=== PATIENT | male | born 1945 | race Caucasian/White ===

== ENCOUNTER 2022-08-17 09:00 | Outpatient (NON) | payer MEDICARE, SELFPAY | END 2022-08-17 09:01 | disposition home or self-care (01) | PROVIDERS: Visit Provider Nurse Practitioner | DX: L82.0 Inflamed seborrheic keratosis (principal) | CPT/HCPCS: 88305 ==

== ENCOUNTER 2023-10-11 11:12 | Outpatient (CLI) | payer MEDICARE, SELFPAY ==
--- NOTE | ~2023-10-11 | US_ITS ---
Abdominal Sonogram: Real-time sonographic imaging of the abdomen was performed. Clinical History: Abdominal pain Findings: The liver appears echogenic, with no evidence of mass lesion or bile duct dilatation. Main portal vein demonstrates normal direction of flow. The spleen is normal in size without evidence of focal lesion. The gallbladder is absent, compatible prior cholecystectomy. The common bile duct kimberly ures 4 mm. There is a 1.7 cm simple appearing cyst near the region of the pancreatic head. The right kidney measures 8.6 cm in length and the left kidney measures 8.8 cm. There is no hydronephrosis or renal calculus. No distinct hernia seen in the right upper quadrant. Impression: Diffuse fatty infiltration of the liver. 1.7 cm simple appearing cyst near the pancreatic head region. No right upper quadrant hernia seen. Reviewed, dictated and finalized at [facility]. Impression: Diffuse fatty infiltration of the liver. 1.7 cm simple appearing cyst near the pancreatic head region. No right upper quadrant hernia seen.
== END 2023-10-11 11:13 ==
DX: R10.9 Unspecified abdominal pain (principal); K43.9 Ventral hernia without obstruction or gangrene; K76.0 Fatty (change of) liver, not elsewhere classified; K86.2 Cyst of pancreas
CPT/HCPCS: 76700

== ENCOUNTER 2025-01-29 10:33 | Outpatient (CLI) | payer MEDICARE, SELFPAY ==
--- NOTE | ~2025-01-29 | US_ITS ---
EXAM: ABDOMEN ULTRASOUND HISTORY: Cyst of pancreas COMPARISON: 10/11/2023 FINDINGS: LIVER: The liver is increased in echogenicity and unremarkable in size. The contour of the liver surface is smooth. GALLBLADDER: Surgically absent. BILE DUCTS: Common bile duct measures 4.6 mm. PANCREAS: Limited evaluation of the pancreas secondary to overlying bowel gas. Within the pancreas is a anechoic well-circumscribed focus measuring 18 x 13 x 11 mm. RIGHT KIDNEY: 8.4 cm. In length. No hydronephrosis or bulky renal calculi. VASCULATURE : The abdominal aorta is nonaneurysmal. The IVC is patent. IMPRESSION: Anechoic avascular focus within the pancreas with measurements as detailed above which given changes in positioning and technique are unchanged from 2023 examination. A cystic mass within the pancreas in isolation without comparison to the remainder of the gland is li mited. This should be further evaluated with MRCP (unless already performed elsewhere) to determine if it is part of the main pancreatic duct or a branch, or within the parenchyma, as it will assist with follo w-up evaluation. Reviewed, dictated and finalized at location [facility]. IMPRESSION: Anechoic avascular focus within the pancreas with measurements as detailed abov e which given changes in positioning and technique are unchanged from 2023 exam ination. A cystic mass within the pancreas in isolation without comparison to the remain aileen of the gland is limited. This should be further evaluated with MRCP (unless already performed elsewhere) to determine if it is part of the main pancreatic duct or a branch, or within the parenchyma, as it will assist with follow-up evaluation.
== END 2025-01-29 10:34 | disposition home or self-care (01) ==
DX: K86.2 Cyst of pancreas (principal)
CPT/HCPCS: 76705

== ENCOUNTER 2025-04-18 15:36 | Outpatient (CLI) | payer MEDICARE, SELFPAY ==
--- OUTSIDE RECORDS SUMMARY | 2025-04-16 15:20 | XMS_ITS | Encounter Summary ---
Author Organization [facility] Healthcare Address [address] [place] [address] Care Team Providers Care Doctor Assistant Name Role Phone Alisia Fox NP Primary Care Provider [phone] Reason for Referral * Diagnostic Imaging (Routine) - Closed Specialty Diagnoses / Procedures Referred By Xenia t Referred To Contact Diagnoses Screening mammogram, encounter for Procedures Screening Mammogram Bilateral W Garry Screening Mammogram, [address] [address] Referral ID Status Reason Start Date Expiration Date Visits Re quested Visits Authorized [id number] Closed 03/12/2025 04/11/2026 1 1 * Diagnostic Imaging (Routine) - Closed Specialty Diagnoses / Procedures Referred By Contac t Referred To Contact Diagnoses Screening mammogram, encounter for Procedures Screening Mammogram Bilateral W Garry Screening Mammogram, Self [address] [address] Referral ID Status Reason Start Date Expiration Date Visits Re quested Visits Authorized [id number] Closed 03/12/2025 04/11/2026 1 1 Reason for Visit * Diagnostic Imaging (Routine) - Closed Specialty Diagnoses / Procedures Referred By Contac t Referred To Contact Diagnoses Screening mammogram, encounter for Procedures Screening Mammogram Bilateral W Garry Screening Mammogram, [address] [address] Referral ID Status Reason Start Date Expiration Date Visits Re quested Visits Authorized [id number] Closed 03/12/2025 04/11/2026 1 1 Encounter Details Date Type Department Care Team (Latest Contact Info) Description 04/16/2025 3:20 PM CDT - 04/16/2025 11:59 PM CDT Hospital Encounter [facility] [address] [place] [address] Screening mammogram, encounter for Discharge Disposition: Discharge to home or self care Social History Tobacco Use Types Packs/Day Years Used Date Smoking Tobacco: Former Cigarettes 1994 Smokeless Tobacco: Never [facility] Utilities Answer Date Recorded In the past 12 months has [employer], oil, or water [employer] threatened to shut off services in your home? No 10/05/2023 Humiliation, Afraid, Rape, and Kick questionnair e Answer Date Recorded Within the last year, have y ou been afraid of your partner or ex-partner? No 10/05/2023 Within the last year, have y ou been humiliated or emotionally abused in other ways by your partner or ex-partner? No Within the last year, have y ou been kicked, hit, slapped, or otherwise physically hurt by your partner or ex-partner? No 10/05/2023 Within the last year, have y ou been raped or forced to have any kind of sexual activity by your partner or ex-partner? No 10/05/2023 Social Connection and Isolation Panel Answer Date Recorded In a typical week, how many times do you talk on the phone with family, friends, or neighbors? More than three times a week 10/05/2023 How often do you get togethe r with friends or relatives? More than three times a week 10/05/2023 How often do you attend chur ch or restorationist services? Never 10/05/2023 Do you belong to any clubs o r organizations such as buddhist groups, unions, fraternal or athletic groups, or school groups? No 10/05/2023 How often do you attend meet ings of the clubs or organizations you belong to? Never 10/05/2023 Are you , , di vorced, , never , or living with a partner? 10/05/2023 AUDIT-C Answer Date Recorded Q1: How often do you have a drink containing alcohol? Never 10/05/2023 Q2: How many drinks containi ng alcohol do you have on a typical day when you are drinking? Patient does not drink 4 Q3: How often do you have si x or more drinks on one occasion? Never 10/05/2023 Overall Financial Resource Strain (CARDIA) Answe r Date Recorded How hard is it for you to pa y for the very basics like food, housing, medical care, and heating? Not hard at all 10/05/2023 PHQ-2 Answer Date Recorded PHQ-2 Total Score (If total score is 3 or more points, staff should administer the PHQ-9) 0 08/03/2024 [facility] - Occupational Stress Questionnaire Answer Date Recorded Do you feel stress - tense, restless, nervous, or anxious, or unable to sleep at night because your mind is troubled all the time - these days? Only a little 10/05/2023 Exercise Vital Sign Answer Date Recorde d On average, how many days pe r week do you engage in moderate to strenuous exercise (like a brisk walk)? 0 days 10/05/2023 On average, how many minutes do you engage in exercise at this level? 0 min 10/05/2023 Hunger Vital Sign Answer Date Recorded Within the past 12 months, y ou worried that your food would run out before you got the money to buy more. Never true 10/05/19 24 Within the past 12 months, t he food you bought just didn't last and you didn't have money to get more. Never true 10/05/2023 PRAPARE - Transportation Answer Date Re corded In the past 12 months, has l ack of transportation kept you from medical appointments or from getting medications? No 12/2023 In the past 12 months, has l ack of transportation kept you from meetings, work, or from getting things needed for daily living? No 10/05/2023 Housing Stability Vital Sign Answer Ady e Recorded In the last 12 months, was t here a time when you were not able to pay the mortgage or rent on time? No 10/05/2023 In the last 12 months, how many places have you lived? 1 10/05/2023 In the last 12 months, was t here a time when you did not have a steady place to sleep or slept in a long-term (including now)? No 10/05/2023 Personal Safety Answer Date Recorded Have you ever been in or are you currently in a harmful physical or emotional relationship or is someone making you feel afraid or unsafe? Denies 08/22/2024 Comments No Sex and Gender Information Value Date Recorded Sex Assigned at Not on file Legal Sex Female 7:57 AM [employer] Gender Identity Not on file Sexual Orientation Not on file documented as of this encounter Last Filed Vital Signs Vital Sign Reading Time Taken Comments Blood Pressure - - Pulse - - Temperature - - Respiratory Rate - - Oxygen Saturation - - Inhaled Oxygen Concentration - - Weight 120.2 kg (265 lb) 04/16/2025 3:31 PM CDT Height 165.1 cm (5' 5) 04/16/2025 3:31 PM CDT Body Mass Index 44.1 04/16/2025 3:31 PM CDT documented in this encounter Medications at Time of Discharge albuterol HFA (PROVENTIL HFA,VENTOLIN HFA,PROAIR HFA) 90 mcg/actuation inhalerIndications :Mild intermittent asthma without complication,Seas[place] nal allergies Inhale 2 puffs every 6 (six) hours as needed for wheezing 10/05/2023 budesonide-formote roL (SYMBICORT) 160-4.5 mcg/actuation inhalerIndications :Mild intermittent asthma without complication,Seaso nal allergies USE 2 INHALATIONS BY MOUTH TWICE DAILY 30.6 g 3 10/09/2024 cholecalciferol 25 mcg (1,000 unit) tablet Take 1 tablet (1,000 Units total) by mouth daily clotrimazole (MYCELEX) 10 mg brandon Take 1 tablet (10 mg total) by mouth 5 (five) times a day 20 [place] 01/23/2024 diclofenac sodium (VOLTAREN) 1 % gelIndications:Perlita n Apply 2 g topically 4 (four) times a day Apply to R shoulder 100 g 08/03/2024 fyvdot-ioybunws-gb ylase 9,000-112,500- 112,500 unit capsule Take by mouth magnesium sulfate 100 mg capsule Take by mouth multivitamin with minerals tablet Take 1 tablet by mouth daily predniSONE (DELTASONE) 50 mg tablet Take 1 tablet (50 mg) by mouth as needed (MRI with contrast reaction previously) take one tablet 13 hrs prior, 7 hours prior and one 1 hour before MRI with contrast 3 tablet 03/06/2025 documented as of this encounter Discharge Disposition Disposition Code Departure Means Destination Discharge to home or self care documented in this encounter Plan of Treatment Pending Results Name Type Priority Associated Diagnoses Date /Time Screening Mammogram Bilateral W Garry Imaging Schedule Routine, Read Routine (OP Routine) Screening mammogram, encounter for 04/16/2025 3:50 PM CDT Scheduled Orders Name Type Priority Associated Diagnoses Orde r Schedule Screening Mammogram Bilateral W Garry Imaging Schedule Routine, Read Routine (OP Routine) Screening mammogram, encounter for Expected: 03/12/2025, Expires: 05/12/2026 Screening Mammogram Bilateral W Garry Imaging Schedule Routine, Read Routine (OP Routine) Screening mammogram, encounter for Once for 1 Occurrences starting 04/16/2025 until 04/16/2025 documented as of this encounter Visit Diagnoses Diagnosis Screening mammogram, encounter for documented in this encounter Care Teams Doctor Assistant Relationship Specialty Start Date End Date Alisia Fox NP PCP - General Family Medicine 10/05/23 documented as of this encounter
--- NOTE | ~2025-04-18 | MR_ITS ---
EXAMINATION: MR abdomen wo/w con DATE: 04/18/2025 17:03 INDICATION: Pancreatic cyst. TECHNIQUE: Magnetic resonance imaging (MRI) of the abdomen was performed without and with 20 mL MultiHance intravenous contrast. COMPARISON: Abdomen ultrasound 01/29/2025 FINDINGS: There is diffuse hepatic steatosis. The gallbladder is absent. There is a 4 mm cyst in the spleen. There is a 14 mm cyst in the body of the pancreas. The pancreatic duct is normal in caliber. The adrenal glands are normal. There are cysts in the kidneys measuring up to 2.3 cm on the left. There are no dilated loops of bowel. There are no pathologically enlarged lymph nodes. There is no free intraperitoneal fluid. IMPRESSION: 1. 14 mm low risk cystic lesion of the pancreas. The differential diagnosis includes pseudocyst, intraductal papillary mucinous neoplasm (IPMN), mucinous cystic neoplasm (MCN), serous cystadenoma, and neuroendocrine tumor. Consider abdomen MRI without and with contrast in 2 years. 2. Diffuse hepatic steatosis. Reviewed, dictated and finalized at location E. IMPRESSION: 1. 14 mm low risk cystic lesion of the pancreas. The differential diagnosis inc ludes pseudocyst, intraductal papillary mucinous neoplasm (IPMN), mucinous cyst ic neoplasm (MCN), serous cystadenoma, and neuroendocrine tumor. Consider abdom en MRI without and with contrast in 2 years. 2. Diffuse hepatic steatosis.
--- OUTSIDE RECORDS SUMMARY | 2025-04-18 15:41 | XMS_ITS | Clinical Summary ---
Author Organization [facility] Office Building B Address [address] [place] [address] Care Team Providers Care Air Crew Supervisor Name Role Phone Alisia Fox NP Primary Care Provider [phone] Allergies Active Allergy Reactions Criticality Noted Date Comments Aspirin Vomiting Low Codeine Vision changes Medium Iodinated Contrast Media Hives Medium 10/05/2023 Iodine Hives Medium Shrimp Hives Medium 08/09/2023 Pentazocine Hallucinations Medium Medications cholecalciferol 25 mcg (1,000 unit) tablet Take 1 tablet (1,000 Units total) by mouth daily Active lipase-protease- amylase 9,000-112,500- 112,500 unit capsule Take by mouth Active multivitamin with minerals tablet Take 1 tablet by mouth daily Active magnesium sulfate 100 mg capsule Take by mouth Active traMADoL (ULTRAM) 50 mg tabletIndication s:Chronic pain of right knee Take 1 tablet (50 mg total) by mouth every 6 (six) hours as needed for pain 120 tablet 4 Active albuterol HFA (PROVENTIL HFA,VENTOLIN HFA,PROAIR HFA) 90 mcg/actuation inhalerIndicatio ns:Mild intermittent asthma without complication,Sea mindy allergies Inhale 2 puffs every 6 (six) hours as needed for wheezing 4 Active LORazepam (ATIVAN) 0.5 mg tablet Take 1 tablet (0.5 mg total) by mouth once for 1 dose Take 3-45 min prior to MRI. Do not take tramadol at least 6 hours before our after taking this medication. 1 tablet 4 Active clotrimazole (MYCELEX) 10 mg brandon Take 1 tablet (10 mg total) by mouth 5 (five) times a day 20 Brandon 4 Active diclofenac sodium (VOLTAREN) 1 % gelIndications:P ain Apply 2 g topically 4 (four) times a day Apply to R shoulder 100 g 5 Active budesonide-formo teroL (SYMBICORT) 160-4.5 mcg/actuation inhalerIndicatio ns:Mild intermittent asthma without complication,Sea mindy allergies USE 2 INHALATIONS BY MOUTH TWICE DAILY 30.6 g 3 5 Active predniSONE (DELTASONE) 50 mg tablet Take 1 tablet (50 mg) by mouth as needed (MRI with contrast reaction previously) take one tablet 13 hrs prior, 7 hours prior and one 1 hour before MRI with contrast 3 tablet 5 Active Active Problems Problem Noted Date Diagnosed Date Medicare annual wellness visit, subsequent 08/03 Assessment & Plan (08/03/2024 12:33 PM STAFFING DIRECTOR): In regard to health maintenance, DEXA- declined Influenza vaccine- declined Pneumococcal vaccine- Declined Shingrix vaccine- UTD Eat a healthy diet: focus on lean meats and proteins, more fruits, vegetables and whole grains and low in sugars and fats. Limit red meat and avoid processed meat. Maintain a healthy weight; avoid being overweight. Aim for a normal body mass index (BMI) of 18.5-24.9. Help learning to eat healthier, we can set up appointment with race car driver/web press operator helper offset. Have an active lifestyle, strive for 30 minutes of moderate exercise 5 times a week and strength or resistance training at least twice a week. Use broad-spectrum (UVA+UVB) sunscreen with SPF 30 or greater, is water resistant, limit time spent in the sun (10 am-4pm), wear hat, wear UV protective clothing, wear sunglasses. Never use a tanning bed. Skin that was irradiated may be more sensitive over your lifetime. Limit alcohol intake, 1 drink per day for a woman and 2 drinks per day for a man. Bursitis of right shoulder 08/03/2024 Assessment & Plan (08/03/2024 12:30 PM STAFFING DIRECTOR): Will start on Medrol dose pack and Voltaren gel. Will continue to monitor. Encounter for screening for lipid disorder 08/03 Assessment & Plan (08/03/2024 12:35 PM STAFFING DIRECTOR): Lipid panel ordered. Will continue to monitor. History of colonic polyps 07/23/2024 Encounter for screening colonoscopy 07/23/2024 Need for hepatitis B vaccination 03/26/2024 Assessment & Plan (03/26/2024 3:20 PM CDT): Needs Hep B vaccine 4 weeks from 03/26 and third dose 4-6 months from second dose Pancreatic cyst 12/15/2023 Assessment & Plan (12/15/2023 11:32 AM CDT): Patient with 1.7 pancreatic cyst seen on US. Will obtain MR/MRCP to further evaluate cyst. If stable, will obtain MRI in one year. Hepatic steatosis 12/15/2023 Assessment & Plan (12/15/2023 11:35 AM CDT): Hepatic steatosis noted on recent US. She has BMI 44.36. Will obtain MR with elastography to determine degree of steatosis and if any fibrosis is present. Patient to get updated labs today to evaluate liver function and rule out viral hepatiits. She will need to be pre-medicated with benzo prior to MRI. Discussed the importance of weight loss. If fibrosis is seen on MRI, she may be a candidate for Rezdiffa, GLP-1 agonist or clinical study. If no fibrosis is seen, she is to discuss weight loss medication options with her PCP. We have discussed the natural history of metabolic dysfunction-associated steatotic liver disease (MASLD), formerly known as NAFLD. We discussed the risks of progression to cirrhosis, association with hepatocellular carcinoma and potential future need for liver transplantation. We have discussed that the main mortality risks are primarily due to cardiovascular diseases, non-hepatic malignancies or cancers and only thirdly, from complications of liver disease. We recommend weight loss through diet and exercise. We recommend weight loss of 10% of current body weight over a period of a year. Lifestyle modification consisting of diet, exercise, and weight loss is necessary to treat patients with MASLD. The data shows that overall weight loss is the bruner to improvement in the histopathological features of MASH. A combination of a low calorie diet (daily reduction by 500-1,000 kcal) and moderate-intensity exercise provides the best chances of achieving and maintaining weight loss over time. Weight loss of at least 3%-5% of body weight appears necessary to improve steatosis, but a greater weight loss (7%-10%) is needed to improve the majority of the histopathological features of MASH, including fibrosis. She will return to clinic in 1 year. Class 3 severe obesity due t o excess calories without serious comorbidity with body mass index (BMI) of 40.0 to 44.9 in adult 10/05/2023 Assessment & Plan (08/03/2024 12:22 PM STAFFING DIRECTOR): Encouraged heart healthy diet and lifestyle. Advised 150 min/week of aerobic exercise. Assessment & Plan (10/05/2023 12:21 PM STAFFING DIRECTOR): Generally healthy diet; eats 2 meals per day Minimal meat or sweets Unable to exercise due to chronic knee pain Elevated blood pressure read ing in office with white coat syndrome, without diagnosis of hypertension 10/05/2023 Assessment & Plan (08/03/2024 12:23 PM STAFFING DIRECTOR): Blood pressure still elevated but under 140/90. Will continue to monitor. Chronic and stable. Assessment & Plan (03/26/2024 3:10 PM CDT): Chronic, well controlled BP at home 130s/80s BP in office; 142/84 Assessment & Plan (10/05/2023 12:08 PM STAFFING DIRECTOR): BP at visit 160/82 120s/70s at home Not interested in medication at this time; states she has always had elevated BP unless at home Will continue to monitor Mild intermittent asthma without complication Assessment & Plan (08/03/2024 12:24 PM STAFFING DIRECTOR): Asthma well controlled and stable. Continues with Symbicort BID, Yoselin, and Albuterol inhaler PRN. Assessment & Plan (03/26/2024 3:16 PM CDT): Chronic, stable, well controlled Continue Symbicort BID, Yoselin D daily and Albuterol PRN Assessment & Plan (10/05/2023 12:20 PM STAFFING DIRECTOR): Chronic, generally well controlled Continue Symbicort BID, Yoselin D, albuterol PRN Seasonal allergies 10/05/2023 Assessment & Plan (08/03/2024 12:30 PM STAFFING DIRECTOR): Refilled Symbicort. Will continue to monitor. Diverticulitis 10/05/2023 Assessment & Plan (10/05/2023 12:19 PM STAFFING DIRECTOR): Generally well controlled Watches what she eats Chronic pain of right knee 10/05/2023 Assessment & Plan (10/05/2023 12:20 PM STAFFING DIRECTOR): Tramadol 50 mg PRN Will let us know when she would like to see ortho Positive colorectal cancer screening using Colog uard test 06/03/2023 Hernia of anterior abdominal wall 01/07/2015 Overview (11/04/2016): Ventral hernia Assessment & Plan (10/05/2023 11:53 AM STAFFING DIRECTOR): Has been having increased pain on her right side; has been told previously she has had hernia Abd US Encounters Date Type Department Care Team Description 04/16/2025 3:20 PM CDT - 04/16/2025 11:59 PM CDT Hospital Encounter [facility] [address] [place] [address] Screening mammogram, encounter for Discharge Disposition: Discharge to home or self care 03/11/2025 [facility]phone [facility] [address] [address] Alisia Fox NP Symptom Based Call 03/06/2025 Orders Only [facility] [address] [address] Alisia Fox NP Pancreatic cyst (Primary Dx) 03/06/2025 Orders Only [facility] [address] [address] Alisia Fox NP 03/05/2025 Telephone [facility] [address] [address] Alisia Fox NP Med Refill 03/05/2025 Telephone [facility] [address] [address] Alisia Fox NP Medical Question/Miscellaneo us 02/05/2025 Results Follow-Up [facility] [address] [address] Claudia Hallman NP US Abdomen Limited 01/31/2025 Orders Only [facility] [address] [address] Claudia Hallman NP Pancreatic cyst from Last 3 Months Immunizations Immunization Administration Dates Next Due Hep B Vaccine 09/26/2024,04/26/2024,03/26/2024 Influenza, Unspecified 08/03/2024(Deferr ed: Patient Refused),04/01/2024(Deferred: Patient Refused),06/02/2023(Deferred: Patient Refused),05/01/2022(Deferred: Patient Refused) Pneumococcal Polysaccharide PPV23 07/30/2023,08/2000 RSV Vaccine, Pref, Recombina nt, Subunit, Adjuvanted, PF, IM (Arexvy) 07/30/2023 Tdap 08/01/2007 ZOSTER Recombinant 03/16/2024,01/12/2024 Surgical History Surgery Date Site/Laterality Comments HYSTERECTOMY 08/01/1983 - 07/31/1984 CHOLECYSTECTOMY 08/01/1990 - 07/31/1991 KIDNEY SURGERY 08/01/2002 - 07/31/2003 Right BREAST BIOPSY Right benign CYST REMOVAL 08/01/1972 - 07/31/1973 Cyst removed from tailbone CATARACT EXTRACTION 09/01/2022 - 09/28/2022 Right COLONOSCOPY 08/01/2007 - 07/31/2008 COLONOSCOPY 08/10/2023 COLONOSCOPY 08/22/2024 Medical History Medical History Date Comments Asthma Arthritis Small bowel obstruction (HCC) 2002 Diverticulitis Colon polyp Family History Medical History Relation Name Comments Lung cancer Brother 1 Aneurysm Brother 2 Breast cancer Brother 2 Lung cancer Brother 2 Aneurysm Brother 3 Heart attack Father Stroke Father Breast cancer Niece Lung cancer Sister 1 Lung cancer Sister 2 Pancreatic cancer Sister 3 Relation Name Status Comments Brother 1 Brother 2 Brother 3 Brother 4 Father Mother Niece Sister 1 Sister 2 Sister 3 Sister 4 Sister 5 Sister 6 Sister 7 Alive Social History Tobacco Use Types Packs/Day Years Used Date Smoking Tobacco: Former Cigarettes 1994 Smokeless Tobacco: Never [facility] [employer] Answer Date Recorded In the past 12 months has [facility] [employer], gas, oil, or water [employer] threatened to shut off services in your [...] often do you attend chur ch or jain services? Never 10/05/2023 Do you belong to any clubs o r organizations such as yazidi groups, unions, fraternal or athletic groups, or [...] you are drinking? Patient does not drink Q3: How often do you have si [...] staff should administer the PHQ-9) 0 08/03/2024 [facility] - Occupational Stress Questionnaire Answer Date Recorded [...] place to sleep or slept in a assisted (including now)? No 10/05/2023 Personal Safety Answer Date Recorded Have you ever been in or are you currently in a harmful physical or emotional relationship or is someone making you feel afraid or unsafe? Denies 08/22/2024 Comments No Sex and Gender Information Value Date Recorded Sex Assigned at Not on file Legal Sex Female 7:57 AM STAFFING DIRECTOR Gender Identity Not on file Sexual Orientation Not on file Obstetrics History Para Term AB IAB SAB Ectopic Multiple Livin g Live Births 1 Date Outcome GA Total Labor Labor/2nd/3rd Weight Sex Type Anes PTL Molly A1 A5 Name Clin Last Filed Vital Signs Vital Sign Reading Time Taken Comments Blood Pressure 129/82 08/22/2024 10:20 AM STAFFING DIRECTOR Pulse 91 08/22/2024 10:20 AM STAFFING DIRECTOR Temperature 36.2 C (97.2 F) 08/22/2024 10:20 AM STAFFING DIRECTOR Respiratory Rate 20 08/22/2024 10:20 AM STAFFING DIRECTOR Oxygen Saturation 95% 08/22/2024 10:20 AM STAFFING DIRECTOR Inhaled Oxygen Concentration - - Weight 120.2 kg (265 lb) 04/16/2025 3:31 PM CDT Height 165.1 cm (5' 5) 04/16/2025 3:31 PM CDT Body Mass Index 44.1 04/16/2025 3:31 PM CDT Plan of Treatment Health Maintenance Due Date Last Done Comments DTaP/Tdap/Td Vaccine (2 - Td or Tdap) 08/01/2017 08/01/2007 Pneumococcal vaccine 65+ (2 of 2 - PCV) 07/30/2024 07/30/2023, 07/01/2001 Covid-19 Vaccine ( season) 2025 07/30/2023, 05/06/2022, 07/23/2021, Additional history exists Influenza Vaccine (#1) 2025 Depression Screening 08/03/2025 08/03/2024, 03/26/2024, 10/05/2023 Fall Risk Assessment 08/03/2025 08/03/2024, 10/05/19 24 Osteoporosis Screening-Bone Density Scan 08/03/2025 Postponed from 1945 (Patient declined, but will receive in the future) Well Visit 65+ 08/03/2025 08/03/2024 Zoster Vaccine Completed 03/16/2024, 01/12/2024 Hepatitis C Screening Completed 07/17/2024, 024 Procedures Procedure Name Priority Date/Time Associated Diagnosis Comments US ABDOMEN LIMITED Schedule Routine, Read Routine (OP Routine) 01/29/2025 7:59 AM CDT Pancreatic cyst HEPATITIS C ANTIBODY Routine 07/17/2024 8:24 AM STAFFING DIRECTOR Need for hepatitis C screening test from Last 3 Months or Most Recently Relevant to Health Maintenance Results * US Abdomen Limited (01/29/2025 7:59 AM CDT) Anatomical Region Laterality Modality Abdomen N/A Ultrasound us Claudia Hallman NP IMG US PROCEDURES Final Resul t * Hepatitis C antibody Blood (07/17/2024 8:24 AM STAFFING DIRECTOR) Hep C Ab Nonreactive Nonreactive Comment: Interpretive Data Nonreactive: Antibodies to HCV not detected. Does NOT exclude the possibility of recent exposure to HCV. Equivocal: Equivocal for HCV antibodies. Supplemental molecular testing will be automatically performed to determine infection status in accordance with current CDC screening recommendations. Reactive: Positive for HCV antibodies. This may represent current or past HCV infection. Supplemental molecular testing will be automatically performed to determine current infection status in accordance with current CDC screening recommendations. Interpretive data was last revised on 2019. Testing performed by: [facility], [address] [place] [address], [place]., [address] Blood 07/17/2024 8:24 AM STAFFING DIRECTOR 07/17/2024 1:15 PM STAFFING DIRECTOR us Alisia Fox NP LAB MICROBIOLOGY - GENERAL ORDER JAKOB Final Result [facility] [address] [facility] Department [place] [address] from Last 3 Months or Most Recently Relevant to Health Maintenance Insurance [facility] MEDICARE [facility] Address: [address] [address] [place] [address] [employer] MEDICARE ADVANTAGE [facility]IC[facility] Address: [address] [place], [place] [id number] Advance Directives For more information, please contact: [phone] * Full Code (Latest Code Status on File) Date Activated Date Inactivated Comments 08/22/2024 8:15 AM 08/22/2024 2:53 PM * Full Code Date Activated Date Inactivated Comments 08/22/2024 8:15 AM 08/22/2024 8:15 AM * Full Code Date Activated Date Inactivated Comments 08/10/2023 12:08 PM 08/10/2023 7:40 PM * Full Code Date Activated Date Inactivated Comments 08/10/2023 12:08 PM 08/10/2023 12:08 PM Care Teams Air Crew Supervisor Relationship Specialty Start Date End Date Alisia Fox NP PCP - General Family Medicine 10/05/23
--- OUTSIDE RECORDS SUMMARY | 2025-04-18 15:41 | XMS_ITS | Clinical Summary ---
Author Organization [facility] Address [address], [facility] [address] [place] [address] Phone Care Team Providers Care Leather Splitter Name Role Phone Erickson Amor DPM Unavailable [phone] Allergies Active Allergy Reactions Criticality Noted Date Comments Aspirin Unknown Codeine Unknown Iodinated Contrast Media Unknown Ibuprofen Unknown Naproxen Unknown Other Unknown SEASONAL Pentazocine Lactate Unknown Medications budesonide-form oterol fumarate (SYMBICORT) 160-4.5 MCG/ACT Aerosol take 2 Puffs by inhalation daily. Active Fexofenadine-Ps eudoephedrine (PAMELLA-D 24 HOUR PO) Take 1 Tab by mouth daily as needed. Active nystatin (MYCOSTATIN) 116544 UNIT/GM Cream KRISHAN THIN LAYER EXT AA TID FOR 14 DAYS UTD 1 7 Active traMADol (ULTRAM) 50 MG Tablet TAKE 1 TABLET BY MOUTH EVERY 6 HOURS NEEDED FOR PAIN 120 Tab 8 Active warfarin (COUMADIN) 5 MG Tablet Take 1 Tab by mouth daily. 30 Tab 1 8 Active Active Problems Problem Noted Date Diagnosed Date Yeast infection 03/07/2017 Gastrocnemius equinus of left lower extremity Heel spur 01/12/2016 Tendonitis, Achilles, left 01/12/2016 Asthma Left leg DVT GERD (gastroesophageal reflux disease) Insomnia DJD (degenerative joint disease) Immunizations Immunization Administration Dates Next Due Covid-19, Mrna, Lnp-s, Pf, 30 Mcg/0.3 Ml Dose (P fizer) 10/30/2020 Pneumococcal Vaccine Adult - 23 Valent 1 Tetanus Toxoid, Unspecified Formulation 08/01/19 08 Family History Medical History Relation Name Comments Breast Cancer Other neice Relation Name Status Comments Other neice Alive Social History Tobacco Use Types Packs/Day Years Used Date Smoking Tobacco: Never Smokeless Tobacco: Never Tobacco Cessation:Counseling Given: Yes Alcohol Use Standard Drinks/Week Comments No 0 (1 standard drink = 0.6 oz pur e alcohol) Comments No Sex and Gender Information Value Date Recorded Sex Assigned at Not on file Legal Sex Female 10:36 PM CDT Gender Identity Not on file Sexual Orientation Not on file Last Filed Vital Signs Vital Sign Reading Time Taken Comments Blood Pressure 137/84 05/19/2017 1:10 PM CDT Pulse 108 05/19/2017 1:10 PM CDT Temperature 36.9 C (98.5 F) 05/19/2017 1:10 PM CDT Respiratory Rate 16 05/19/2017 1:10 PM CDT Oxygen Saturation 97% 05/19/2017 1:10 PM CDT Inhaled Oxygen Concentration - - Weight 124.7 kg (275 lb) 05/19/2017 1:10 PM CDT Height 162.6 cm (5' 4) 05/19/2017 1:10 PM CDT Body Mass Index 47.2 05/19/2017 1:10 PM CDT Plan of Treatment Health Maintenance Due Date Last Done Comments Hepatitis C Virus (HCV) Screening 1945 TdaP Immunization 1945 Zoster Immunization (1 of 2) 12/17/1995 Pneumococcal Immunization (5 0+ years) (2 of 2 - PCV) 07/01/2002 07/01/2001 Respiratory Syncytial Virus (RSV) Immunization (Adult) (1 - 1-dose 75+ series) 2020 Influenza Immunization (#1) 2025 SARS-COV-2 Immunization ( - 2024- season) 2025 07/23/2021, 11/27/2020, 10/30/2020 Pneumococcal Immunization Combined Discontinued 07/01/2001 Colorectal Cancer Screening Discontinued Immunochemical Fecal Occult Blood Discontinued 08/04/2016 Mammogram Discontinued 08/20/2016 Cologuard Discontinued Colonoscopy Discontinued Hepatitis B Immunization Aged Out No longer eligible based on patient's age to complete this topic Human Papillomavirus (HPV) Immunization Aged Out No longer eligible based on patient's age to complete this topic Meningococcal Immunization (ACWY) Aged Out No longer eligible based on patient's age to complete this topic Rotavirus Immunization Aged Out No lo nger eligible based on patient's age to complete this topic Procedures Procedure Name Priority Date/Time Associated Diagnosis Comments RUBIO SCREENING BILATERAL DIGITAL W CAD Routine 08/20/2016 2:19 PM PHOTOENGRAVING MACHINE OPERATOR/TENDER Encounter for screening mammogram for breast cancer STOOL, OCCULT BLOOD IMMUNOASSAY (IFOB) Routine 08/04/2016 from Last 3 Months or Most Recently Relevant to Health Maintenance Results * RUBIO SCREENING BILATERAL DIGITAL W CAD (08/20/2016 2:19 PM PHOTOENGRAVING MACHINE OPERATOR/TENDER) Anatomical Region Laterality Modality breast Bilateral Mammography 08/20/2016 1:51 PM PHOTOENGRAVING MACHINE OPERATOR/TENDER Narrative 08/20/2016 3:04 PM PHOTOENGRAVING MACHINE OPERATOR/TENDER - RUBIO SCREENING BILATERAL DIGITAL W CAD BILATERAL DIGITAL SCREENING MAMMOGRAM WITH CAD WITH MEDIOLATERAL OBLIQUE CRANIOCAUDAL: 08/20/2016 The study was acquired using digital technology and interpreted from soft copy. Current study was also evaluated with ICAD version 7.2. CLINICAL: Routine screening. Patient has no complaints. No personal history of cancer. Niece with history of breast cancer. COMPARISONS: Comparison is made to exams dated: 10/04/2014, 04/13/2013, 05/12/2012, 04/14/2010, and 03/18/2009 [facility]. BREAST TISSUE:There are scattered fibroglandular densities in both breasts. FINDINGS: No significant masses, calcifications, or other findings are seen in either breast. There has been no significant interval change. IMPRESSION: BI-RAD 1 NEGATIVE There is no mammographic evidence of malignancy. A 1 year screening mammogram is recommended. The patient has been or will be contacted. The patient will be entered into a reminder system with a target due date of 1 year for her next screening exam. Electronically signed by: Marcos maldonado/jackson:08/20/2016 14:35:46 Manager Event: Bettye Calero), [facility] letter sent: Normal Exam Reading location: [place] BI-RADS: 1 Negative Procedure Note Marcos Louise MD - 08/20/2016 - RUBIO SCREENING BILATERAL DIGITAL W CAD BILATERAL DIGITAL SCREENING MAMMOGRAM WITH CAD WITH MEDIOLATERAL OBLIQUE CRANIOCAUDAL: 08/20/2016 The study was acquired using digital technology and interpreted from soft copy. Current study was also evaluated with ICAD version 7.2. CLINICAL: Routine screening. Patient has no complaints. No personal history of cancer. Niece with history of breast cancer. COMPARISONS: Comparison is made to exams dated: 10/04/2014, 04/13/2013, 05/12/2012, 04/14/2010, and 03/18/2009 [facility]. BREAST TISSUE:There are scattered fibroglandular densities in both breasts. FINDINGS: No significant masses, calcifications, or other findings are seen in either breast. There has been no significant interval change. IMPRESSION: BI-RAD 1 NEGATIVE There is no mammographic evidence of malignancy. A 1 year screening mammogram is recommended. The patient has been or will be contacted. The patient will be entered into a reminder system with a target due date of 1 year for her next screening exam. Electronically signed by: Marcos maldonado/jackson:08/20/2016 14:35:46 Manager Event: Bettye Joy(Alvina), [facility] letter sent: Normal Exam Reading location: [facility] BI-RADS: 1 Negative us Eugene Valentino DO IMG MAMMO ORDERABLES Final Resul t * STOOL, OCCULT BLOOD IMMUNOASSAY (IFOB) (08/04/2016) Specimen of unknown material (specimen) STOOL SPECIMEN / Unknown us Eugene Valentino DO BODY FLUIDS & STOOLS ORDERABLES Final Result from Last 3 Months or Most Recently Relevant to Health Maintenance Care Teams Leather Splitter Relationship Specialty Start Date End Date Erickson Amor DPM Podiatry 01/12/16
== END 2025-04-18 15:37 | disposition home or self-care (01) ==
PROVIDERS: Visit Provider Family Medicine
DX: K86.2 Cyst of pancreas (principal); K76.0 Fatty (change of) liver, not elsewhere classified
CPT/HCPCS: 74183; A9577